=== PATIENT | female | born 1980 | race Caucasian/White ===

== ENCOUNTER → 2020-11-25 16:51 | Outpatient (CLI) | payer MEDICAID, SELFPAY ==
--- NOTE | 2020-11-25 16:59 | CT_ITS ---
STUDY: CT FACIAL BONES WITH CONTRAST REASON FOR EXAM: Female, 40 years old. FACIAL SWELLING AND PAIN OFF AND ON FOR WEEKS LEFT MANDIBLE AREA MARKED WITH BB RADIATION DOSAGE (If Supplied By Facility): CTDIvol = ( 29.38 ) mGy, DLP = ( 638.38 ) mGycm TECHNIQUE: The patient was scanned in a multi detector CT scanner. Transaxial imaging was performed following the intravenous administration of IV 100mL Isovue-370. Sagittal and coronal images were reconstructed. Individualized dose optimization techniques were used for this CT. COMPARISON: None. FINDINGS: At the site of the region of interest, there is very subtle asymmetric skin thickening and induration of the subcutaneous fat suggesting mild case of cellulitis. There is no abscess, or fluid collection noted. Normal orbital baca and orbital contents. Normal nasal bones and anterior nasal spine. Normal facial bones. There is no demonstrated fracture. Normal visualized paranasal sinuses. There are scattered subcentimeter jugular chain and submental lymph nodes CT/Sinus/Facial Bone WITH Contras IMPRESSION: No demonstrated facial fracture, or suspicious osseous lesion Very subtle asymmetric left-sided skin thickening and induration of the subcutaneous fat at the site of the region of interest on the left side of the face anterior to the left mandible Scattered subcentimeter jugular chain and submental lymph nodes Electronically Signed: Henry Parks MD at 17:56 EST , Service support ,
--- NOTE | 2020-11-25 17:16 | US_ITS ---
STUDY: Ultrasound of the subcutaneous tissue anterior to the left mandible REASON FOR EXAM: Female, 40 years old. PT C/O OF SUPERFICIAL LUMP NEAR THE LEFT CORNER OF HER MOUTH NEAR HER MANDIBLE. PT STATES THAT THIS LUMP HAS CAME AND WENT PERIODICALLY FOR THE LAST 2 MONTHS AND CURRENTLY BEEN AROUND FOR 3 DAYS. TECHNIQUE: Sonographic evaluation of the area of concern COMPARISON: None. FINDINGS: There is no sonographic evidence of suspicious hyperemia fluid collection or other abnormality at the area of concern. There is no solid mass lesion or adenopathy. Evaluation was also performed of the right side in a similar area for comparison there are no abnormalities or asymmetries noted. US/Head/Neck Soft Tissue IMPRESSION: No suspicious sonographic findings Electronically Signed: Henry Parks MD at 17:57 EST , Service support ,
== END ==
PROVIDERS: PCP Student in an Organized Health Care Education/Training Program; Referring Provider Student in an Organized Health Care Education/Training Program; Visit Provider Student in an Organized Health Care Education/Training Program
DX: R51.9 Headache, unspecified (principal); R22.0 Localized swelling, mass and lump, head; R68.84 Jaw pain
CPT/HCPCS: 70487; 76536; Q9967

== ENCOUNTER 2021-12-22 13:34 | Outpatient (CLI) | payer MEDICAID, SELFPAY ==
--- NOTE | 2021-12-22 | IMM_PTH ---
PATIENT: ROYER ALLEN LOC: U#:[id number] AGE/SX: 41/F ROOM: RE12/22/[address]: Dr. Hong Falk MD : 1980 BED: DIS: 12/22/2021 SPEC #: [id number] RECD: 12/26/21 13:45 STATUS: JEANINE RELazaro #: [id number] HANK: 12/22/21 00:[address]: Hong Falk DEPT: IMMUNOHISTOCHEMISTRY RECD BY: Lesley Linn ENTERED: 12/26/21 13:47 SP TYPE: IMMUNO OTHR DR: Dr. Maximiliano Murillo DO Tissues: Thyroid gland, NOS Procedures: Thyroglobulin (add) CD45 (add) CK8 (add) TTF1 (initial) PHYSICIAN & INSTITUTION [place] [id number] SPECIMEN INFORMATION: Tissue Source: Thyroid Clinical Info: Thyroid nodules Specimen Number: [id number] CPT code: 75045, 51502 x3 METHODOLOGY: Deparaffinized sections of prefer/formalin-fixed tissue or PAP/DQ stained slides are incubated with monoclonal/polyclonal antibodies/oligonucleotide probes. Localization is made via biotin free immunoperoxidase method. Appropriate controls are performed and reacted as expected. Results on target cell population are indicated in the following table: RESULTS: ANTIBODY / CLONE RESULT Thyro (2H11+6E1) positive TTF-1 (8G7G3/1) positive CK8 (40kbqxA77) positive CD45 (RP2/18) negative These tests were developed and their performance characteristics determined by [facility]. They may not have been cleared or approved by the U.S. Food and Drug Administration. The FDA has determined that such clearance or approval is not necessary. The above immunohistochemical/dualISH markers are ordered and reviewed by the Pathologist. INTERPRETATION: Thyroid, ultrasound-guided fine needle aspiration: Rare follicular cells present. AM:maik 12/27/2021
--- NOTE | 2021-12-22 13:42 | US_ITS ---
STUDY: ULTRASOUND GUIDED BIOPSY OF THE RIGHT THYROID NODULE. REASON FOR EXAM: Female, 41 years old. THY MASS TECHNIQUE: Under direct sonographic guidance, the surgeon performed 3 biopsies of the 1.8 cm x 1.6 x 1.6 cm hypoechoic solid nodule. COMPARISON: None. US/FNA 1st Biopsy w/ US IMPRESSION: Successful ultrasound-guided biopsy of the right thyroid nodule. Electronically Signed: Christian Mcdonnell MD at 8:12 EST ,
[2021-12-22] MEDS: Lidocaine 2% (20 ml mdv) 20 ML Vial INFILT (14:00)
--- NOTE | 2021-12-22 14:00 | ASPIG_PTH ---
PATIENT: ROYER ALELN LOC: U#:[id number] AGE/SX: 41/F ROOM: RE12/22/[address]: Dr. Hong Falk MD : 1980 BED: DIS: 12/22/2021 SPEC #: [id number] RECD: 12/22/21 14:15 STATUS: JEANINE MILA #: [id number] HANK: 12/22/21 14:[address]: Hong Falk DEPT: CYTOLOGY RECD BY: Ewelina Whitney ENTERED: 12/22/21 14:36 SP TYPE: ASP OUT OTHR DR: Dr. Maximiliano Murillo, DO Tissues: Thyroid gland, NOS Procedures: FNA Specimen Adequacy Special Stain Group II Surgery Specimen Level IV Cytology Other HEADER OPERATION: Ultrasound-guided thyroid fine needle aspiration PRE-OP DIAGNOSIS: Nodules TISSUE SUBMITTED: Thyroid DIAGNOSIS CYTOLOGY Ultrasound-guided fine needle aspiration of tissue inferior to thyroid (smears and cell block): Follicular cells of thyroid origin with mild atypia. See comment. AM:maik 12/26/2021 COMMENT The specimen is evaluated at the time of biopsy by Dr. Sanchez. Immediate Evaluation: Pass 1 ? Follicular cells present. Pass 2 ? Follicular cells present. Pass 3 ? Follicular cells present. Immunohistochemistry ([id number]) supports the above diagnosis. 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 Clinical correlation is necessary. Case has been reviewed in consultation with Dr. Wyatt who concurs with the above diagnosis. IDC:SJ CYTOLOGY STUDY Slides are reviewed. CYTOLOGY GROSS Received in three passes is 0.25 ml of reddish fluid labeled with the patient's name, and designated thyroid. 14 imprints and 4 paps are made from the submitted fluid and the rest is added to CytoLyt for cell block preparation. Submitted for cytology study. / AM:maik 12/22/2021 TC:? CPT: 00731, 51862, 95727 x2 ADDENDUM ADDENDUM ADDENDUM ADDENDUM ADDENDUM ADDENDUM ADDENDUM ADDENDUM ADDENDUM ADDENDUM 08/08/2022 10:35 ADDENDUM 08/08/2022 10:35 ADDENDUM 08/08/2022 10:35 ADDENDUM 08/08/2022 10:35 ADDENDUM 08/08/2022 10:35 This addendum is added to incorporate an outside pathology consultation report. The case was examined at [facility] (#[id number]) and the following diagnosis was rendered. Thyroid, ultrasound-guided fine needle aspiration: Atypia of undetermined significance. Please see complete above mentioned consultation report in EMR
--- NOTE | 2021-12-22 14:49 | OP.PCM_ITS ---
Problems Associated Problem List Diagnoses (1) Mass of left side of neck: Report of Operation Date of Procedure: 12/22/21 Pre-Operative Diagnosis: Left neck mass Post-Operative Diagnosis: Same Surgery/Procedure Performed:: Ultrasound-guided fine-needle aspiration of left neck mass Surgeon: Hong Falk truck driver heavy: None Type of Anesthesia: Local Description of Procedure: Left neck was ultrasound inferior to the previous thyroid bed was a mass. Prepped the skin with chlorhexidine. I injected 1% lidocaine plain. Under ultrasound guidance 3 passes with a 22-gauge needle were performed. I gave these to the pathologist who plated them and identified follicular cells. Sterile dressings were applied and the patient tolerated the procedure well. Admit VTE Documentation VTE Present on Admission: No VTE Mechan Device Prophylaxis: SCD's VTE Pharm Prophylaxis ordered?: No Reason prophylaxis not ordered:: Treatment Not Indicated
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
== END 2021-12-22 23:59 | disposition home or self-care (01) ==
LOC: US 13:38
PROVIDERS: PCP Student in an Organized Health Care Education/Training Program; Referring Provider Surgery; Visit Provider Surgery
DX: R22.1 Localized swelling, mass and lump, neck (principal); E04.1 Nontoxic single thyroid nodule
CPT/HCPCS: 10005; 88161; 88172; 88305; 88313; 88341; 88342